=== PATIENT | male | born 2000 | race Caucasian/White ===

== ENCOUNTER 2021-09-16 09:03 | Emergency (ER) | payer MEDICAID ==
[~2021-09-16] VITALS: Ht 177.8 cm; Wt 77.3 kg
[2021-09-16 09:07] VITALS: BP 142/90
[2021-09-16] MEDS ORDERED: DiphenhydrAMINE HCL 50 MG/ML VIAL IM ONE (10:15)
[2021-09-16] MEDS ORDERED: CEPHALEXIN MONOHYDRATE 500 MG CAPSULE PO ONE (10:15)
[2021-09-16] MEDS ORDERED: PredniSONE 20 MG TABLET PO ONE (10:15)
== END 2021-09-16 10:27 | disposition home or self-care (01) ==
LOC: EMS 09:06
DX: T78.49XA Other allergy, initial encounter (principal); X58.XXXA Exposure to other specified factors, initial encounter
CPT/HCPCS: 96372; 99283; J1200; J7512

== ENCOUNTER 2021-09-21 10:48 | Emergency (ER) | payer MEDICAID ==
[~2021-09-21] VITALS: Ht 177.8 cm; Wt 72.7 kg
[2021-09-21 11:11] VITALS: BP 154/91
[2021-09-21] MEDS: PERTUSS(ACELL),DIPH,TET VAC/PF 0.5 ML SYRINGE IM. ONE (12:37)
[2021-09-21] MEDS: IBUPROFEN 600 MG TABLET PO ONE (12:37)
== END 2021-09-21 13:45 | disposition home or self-care (01) ==
LOC: EMS 10:52
DX: S51.811A Laceration without foreign body of right forearm, initial encounter (principal); S61.216A Laceration without foreign body of right little finger without damage to nail, initial encounter; Z91.030 Bee allergy status; V29.9XXA Motorcycle rider (driver) (passenger) injured in unspecified traffic accident, initial encounter; Y93.55 Activity, bike riding; Y92.89 Other specified places as the place of occurrence of the external cause; Y99.8 Other external cause status
CPT/HCPCS: 90471; 90715; 99284